=== PATIENT | male | born 1970 | race Caucasian/White ===

== ENCOUNTER 2023-05-28 13:08 | Emergency (ER) | payer MEDICAID ==
[~2023-05-28] VITALS: Ht 175.3 cm; Wt 100.6 kg
[2023-05-28 16:59] LABS: URINE AMPHETAMINE SCREEN POSITIVE (Neg); URINE BARBITUATE SCREEN NEGATIVE (Neg); URINE BENZODIAZEPINES SCREEN NEGATIVE (Neg); URINE CANNABINOID SCREEN POSITIVE (Neg); URINE COCAINE SCREEN NEGATIVE (Neg); URINE METHADONE SCREEN NEGATIVE (Neg); URINE OPIATE SCREEN NEGATIVE (Neg); URINE PHENCYCLIDINE SCREEN NEGATIVE (Neg)
[2023-05-28 17:41] VITALS: BP 123/86; PULSE 82; RESP 17; TEMP 98.3; O2SAT 99
== END 2023-05-28 19:36 | disposition home or self-care (01) ==
LOC: ER 13:10
DX: Z00.01 Encounter for general adult medical examination with abnormal findings (principal)
CPT/HCPCS: 80305; 99283